=== PATIENT | male | born 1960 | race Caucasian/White ===

== ENCOUNTER 2025-03-11 11:59 | Day surgery (SDC) | payer OTHER ==
[2025-03-11] VITALS (19 sets, daily range): BP systolic 89–152; BP diastolic 57–131
[~2025-03-11] VITALS: Ht 175.3 cm; Wt 111.5 kg
[~2025-03-11 11:59] MED LIST: CELE200 PO; LISI20 PO; Pepcid40 MG PO; Zestril40 MG PO
[2025-03-11] MEDS ORDERED: ATOR20 PO (12:23)
[2025-03-11] MEDS ORDERED: METO25 PO (12:24)
--- NOTE | 2025-03-11 12:54 | NUR ---
03/11/25 [id number] Trang Franco CONFIRMED AND REVIEWED H&P, MEDCICATIONS, ALLERGIES, MEDICAL HISTORY, RESPIRATORY HISTORY, VITAL SIGNS, 3-LEAD EKG, CONSENTS, AND PHYSICIAN ORDERS. PATIENT CONFIRMS NPO STATUS AND AGREES WITH SCHEDULED PROCEDURE. MONITOR INTACT WITH CONTINUOUS PULSE OXIMETRY, CAPNOGRAPHY, 3-LEAD EKG, INTERMITTENT BP. SUPPLEMENTAL O2 TO BE TITRATED THROUGHOUT PROCEDURE TO MAINTAIN O2 SATURATION ABOVE 90%. PATIENT DETERMINED TO BE ASA APPROPRIATE FOR PROPOFOL SEDATION PRIOR TO START OF PROCEDURE BY DR. DURANT. MALLAMPATI CLASS 2 AIRWAY: COMPLETE VISUALIZATION OF THE UVULA.
--- NOTE | 2025-03-11 13:58 | NUR ---
Patient States Post-Procedure ride home has been arranged. Discharged via wheelchair to private car for ride home. Discharge instructions reviewed with patient. Patient verbalizes understanding. Copy given to patient to take home.
== END 2025-03-11 23:00 | disposition home or self-care (01) ==
LOC: ORSCMMR 11:59 → ORD 13:00 → ORSCMMR 13:00
PROVIDERS: Internal Medicine Gastroenterology
PROC: 0DBP8ZX Excision of Rectum, Via Natural or Artificial Opening Endoscopic, Diagnostic (ICD-10-PCS; principal; 2025-03-11 13:00)
PROC: 0DBN8ZX Excision of Sigmoid Colon, Via Natural or Artificial Opening Endoscopic, Diagnostic (ICD-10-PCS; principal; 2025-03-11 13:00)
DX: Z12.11 Encounter for screening for malignant neoplasm of colon (principal); Z86.0100 Personal history of colon polyps, unspecified; D12.5 Benign neoplasm of sigmoid colon; K63.5 Polyp of colon; I10 Essential (primary) hypertension; E78.00 Pure hypercholesterolemia, unspecified; Z79.899 Other long term (current) drug therapy
CPT/HCPCS: 88305; J2704; J7120